=== PATIENT | male | born 1960 | race Caucasian/White ===

== ENCOUNTER 2016-04-23 07:28 | Emergency (ER) | payer OTHER ==
--- NOTE | 2016-04-23 07:34 | EDM.PDOC ---
ED HPI ENT - General Chief Complaint: ENT Problem Stated Complaint: NOSE BLEED Time Seen by Provider: 04/23/16 07:29 Source of Information: Reports: Patient History Limitations: Reports: No limitations - History of Present Illness INITIAL COMMENTS - FREE TEXT/NARRATIVE: History of present illness: [] Patient started having a nosebleed one hour ago and has not stopped. Patient takes one baby aspirin a day and took one last night. Review of systems: As per history of present illness and below otherwise all systems reviewed and negative. Past medical history: As per history of present illness and as reviewed below otherwise noncontributory. Surgical history: As per history of present illness and as reviewed below otherwise noncontributory. Social history: No reported history of drug or alcohol abuse. Family history: As per history of present illness and as reviewed below otherwise noncontributory. Physical exam: General: Well developed, well nourished in NAD HEENT: Atraumatic, normocephalic, pupils reactive, negative for conjunctival pallor or scleral icterus, mucous membranes moist, throat clear, neck supple, nontender, trachea midline. Right Anterior septum with an area of moderate active bleeding. Lungs: Clear to auscultation, breath sounds equal bilaterally, chest nontender. Heart: S1S2, regular, negative for clicks, rubs, or JVD. Abdomen: Soft, nondistended, nontender. Negative for masses or hepatosplenomegaly. Negative for costovertebral tenderness. Pelvis: Stable nontender. Genitourinary: Deferred. Rectal: Deferred. Extremities: Atraumatic, negative for cords or calf pain. Neurovascular unremarkable. Neuro: Awake, alert, oriented. Cranial nerves II through XII unremarkable. Cerebellum unremarkable. Motor and sensory unremarkable throughout. Exam nonfocal. Diagnostics: [] Therapeutics: [] Nasal septum was anesthetized with lidocaine with epi after 2 sprays of Afrin. Patient blew clots out in anterior bleed was visualized and cauterized with silver nitrate. Impression: [] Epistaxis Plan: [] Stop aspirin for one week. Followup PMD return if symptoms worsen or change Definitive disposition and diagnosis as appropriate pending reevaluation and review of above. Quality: Reports: Burning - Related Data Allergies/ADRs: Allergies Allergy/AdvReac Type Severity Reaction Status Date / Time No Known Allergies Allergy Verified 02/20/14 09:06 Home Meds: Home Meds Aspirin 1 tab PO DAILY 04/23/16 [History] FLUoxetine HCl [Fluoxetine] 1 tab PO DAILY 04/23/16 [History] Lisinopril [Zestril] 1 tab PO DAILY 04/23/16 [History] Methylphenidate HCl [Methylphenidate ER] 1 tab PO DAILY 04/23/16 [History] Omeprazole Magnesium [Prilosec Otc] 1 tab PO DAILY 04/23/16 [History] atorvaSTATin [Lipitor] 1 tab PO DAILY 04/23/16 [History] ED ROS ENT - Review of Systems Review Of Systems: See Below (See history of present illness) ED EXAM, ENT - Physical Exam Exam: See Below (See history of present illness) Course - Vital Signs Last Recorded V/S: Last Vital Signs Temp 36.2 C 04/23/16 07:34 Pulse 91 04/23/16 07:34 Resp 20 04/23/16 07:34 BP 140/94 H 04/23/16 07:34 Pulse Ox 96 04/23/16 07:34 - Orders/Labs/Meds Meds: Medications Discontinued Medications Generic Name Dose Route Start Last Admin Trade Name Sunshine PRN Reason Stop Dose Admin Lidocaine/Epinephrine 20 ml 04/23/16 07:49 04/23/16 07:56 Xylocaine 1% With Epinephrine 1:100,000 INJECT 04/23/16 07:50 20 ml ONETIME ONE Administration Oxymetazoline HCl 5 ml 04/23/16 07:38 04/23/16 07:48 Afrin Original 0.05% Nasal [place] MONI 04/23/16 07:39 1 squirt ONETIME ONE Administration Departure - Departure Time of Disposition: 08:16 Disposition: Home, Self-Care 01 Condition: good Clinical Impression: Epistaxis Forms: ED Department Discharge Additional Instructions: The following information is given to patients seen in the emergency department who are being discharged to home. This information is to outline your options for follow-up care. We provide all patients seen in our emergency department with a follow-up referral. The need for follow-up, as well as the timing and circumstances, are variable depending upon the specifics of your emergency department visit. If you don't have a primary care physician on staff, we will provide you with a referral. We always advise you to contact your personal physician following an emergency department visit to inform them of the circumstance of the visit and for follow-up with them and/or the need for any referrals to a consulting specialist. The emergency department will also refer you to a specialist when appropriate. This referral assures that you have the opportunity for follow-up care with a specialist. All of these measure are taken in an effort to provide you with optimal care, which includes your follow-up. Under all circumstances we always encourage you to contact your private physician who remains a resource for coordinating your care. When calling for follow-up care, please make the office aware that this follow-up is from your recent emergency room visit. If for any reason you are refused follow-up, please contact the [facility] Emergency Department at and asked to speak to the emergency department charge nurse. [facility] - ENT [address] [place] [phone]
[2016-04-23] MEDS ORDERED: Oxymetazoline 0.05% Nasal Spray 15 ML Bottle NAS ONE (07:38)
[2016-04-23] MEDS ORDERED: Lidocaine 1% with EPINEPHrine 1:100,000 20 ML MDV INJECT ONE (07:49)
[2016-04-23 08:27] VITALS: BP 127/75
== END 2016-04-23 08:25 | disposition home or self-care (01) ==
LOC: MW.ED 07:28
DX: R04.0 Epistaxis (principal); Z79.82 Long term (current) use of aspirin; Z79.899 Other long term (current) drug therapy
CPT/HCPCS: 30901; 99283; A9270; 99282

== ENCOUNTER 2018-12-23 20:35 | Emergency (ER) | payer OTHER ==
[2018-12-23] MEDS ORDERED: Lidocaine 1% with EPINEPHrine 1:100,000 10 ML MDV INJECT ONE (20:47)
[2018-12-23] MEDS ORDERED: Oxymetazoline 0.05% Nasal Spray 15 ML Bottle NAS ONE (20:47)
--- NOTE | 2018-12-23 20:48 | EDM.PDOC ---
ED HPI GENERAL MEDICAL PROBLEM - General Chief Complaint: ENT Problem Stated Complaint: NOSE BLEED Time Seen by Provider: 12/23/18 20:47 Source of Information: Reports: Patient History Limitations: Reports: No Limitations - History of Present Illness INITIAL COMMENTS - FREE TEXT/NARRATIVE: HISTORY AND PHYSICAL: History of present illness: Patient is a 58-year-old male presents to the ED with complaint of nosebleed. He states he blew his nose about an hour prior to arrival and is now start to bleed and has not stopped. He denies injury or trauma. He does take a daily baby aspirin. He denies chest pain, shortness of breath, dizziness, syncope or near syncope. Review of systems: As per history of present illness and below otherwise all systems reviewed and negative. Past medical history: As per history of present illness and as reviewed below otherwise noncontributory. Surgical history: As per history of present illness and as reviewed below otherwise noncontributory. Social history: No reported history of drug or alcohol abuse. Family history: As per history of present illness and as reviewed below otherwise noncontributory. Physical exam: General: Patient sitting comfortably in no acute distress and nontoxic appearing HEENT: Bleeding from right nares but unable to visual sight of bleeding. Atraumatic, normocephalic, pupils reactive, negative for conjunctival pallor or scleral icterus, mucous membranes moist, throat clear, neck supple, nontender, trachea midline. No meningeal signs. Lungs: Clear to auscultation, breath sounds equal bilaterally, chest nontender. Heart: S1S2, regular, negative for clicks, rubs, or overt murmur. Abdomen: Soft, nondistended, nontender. Negative for masses or hepatosplenomegaly. Negative for costovertebral tenderness. No rigidity, rebound , guarding. Pelvis: Stable nontender. Genitourinary: Deferred. Rectal: Deferred. Extremities: Atraumatic, negative for cords or calf pain. Neurovascular unremarkable. Neuro: Awake, alert, oriented. Cranial nerves II through XII unremarkable. Cerebellum unremarkable. Motor and sensory unremarkable throughout. Exam nonfocal. Notes: Patient was instructed to blow nose to remove clots, 2 sprays of Afrin in to the nares, nasal plug placed in to the right nostril and infiltrated with lidocaine 1% with epinephrine and left for 15 minutes. Bleeding continued after 15 minutes so rhino rocket used. a 7.5cm Rhino rocket was soaked in sterile water and placed in to the right nostril and inflated with 10cc air. Patient tolerate this well. He denies drainage down his throat but does have some dripping out of his nose. Diagnostics: [] Therapeutics: [] Prescriptions: Impression: Epistaxis Plan: Follow up with ENT tomorrow, please call Dr. Pearson in [place] for follow up. If you can not be seen tomorrow, please call so we can arrange a follow up in [place] as the packing must be removed by Thursday. Take antibiotic as instructed. Sleep with your head elevated and at least 3 pillows. Return to ED as needed as discussed Definitive disposition and diagnosis as appropriate pending reevaluation and review of above. - Related Data Allergies Allergy/AdvReac Type Severity Reaction Status Date / Time No Known Allergies Allergy Verified 12/23/18 20:42 Home Meds: Home Meds Aspirin 1 tab PO DAILY 04/23/16 [History] FLUoxetine HCl [Fluoxetine] 1 tab PO DAILY 04/23/16 [History] Lisinopril [Zestril] 1 tab PO DAILY 04/23/16 [History] Methylphenidate HCl [Methylphenidate ER] 1 tab PO DAILY 04/23/16 [History] Omeprazole Magnesium [Prilosec Otc] 1 tab PO DAILY 04/23/16 [History] atorvaSTATin [Lipitor] 1 tab PO DAILY 04/23/16 [History] Past Medical History Cardiovascular History: Reports: High Cholesterol, Hypertension Other Gastrointestinal History: Heartburn Psychiatric History: Reports: ADHD, Anxiety - Infectious Disease History Infectious Disease History: Reports: Measles, Mumps - Past Surgical History HEENT Surgical History: Reports: Naso-Sinus Surgery, Other (See Below) Social & Family History - Family History Family Medical History: Noncontributory - Caffeine Use Caffeine Use: Reports: Coffee ED ROS ENT - Review of Systems Review Of Systems: ROS reveals no pertinent complaints other than HPI. ED EXAM, ENT - Physical Exam Exam: See Below (see dictation) Course - Vital Signs Last Recorded V/S: Last Vital Signs Temp 96.3 F 12/23/18 20:43 Pulse 90 12/23/18 20:43 Resp 16 12/23/18 20:43 BP 158/93 H 12/23/18 20:43 Pulse Ox 96 12/23/18 20:43 - Orders/Labs/Meds Meds: Medications Discontinued Medications Generic Name Dose Route Start Last Admin Trade Name Sunshine PRFredy Reason Stop Dose Admin Lidocaine/Epinephrine 10 ml 12/23/18 20:47 12/23/18 20:54 Xylocaine 1% With Epinephrine 1:100,000 INJECT 12/23/18 20:48 Not Given ONETIME ONE Lidocaine/Epinephrine 20 ml 12/23/18 20:54 Xylocaine 1% With Epinephrine 1:100,000 INJECT 12/23/18 20:55 ONETIME ONE Oxymetazoline HCl 1 ml 12/23/18 20:47 Afrin Original 0.05% Nasal [place] MONI 12/23/18 20:48 ONETIME ONE Departure - Departure Time of Disposition: 22:14 Disposition: Home, Self-Care 01 Condition: Good Clinical Impression: Epistaxis - Discharge Information Referrals: Petar Brown MD [Primary Care Provider] - Forms: ED Department Discharge Additional Instructions: The following information is given to patients seen in the emergency department who are being discharged to home. This information is to outline your options for follow-up care. We provide all patients seen in our emergency department with a follow-up referral. The need for follow-up, as well as the timing and circumstances, are variable depending upon the specifics of your emergency department visit. If you don't have a primary care physician on staff, we will provide you with a referral. We always advise you to contact your personal physician following an emergency department visit to inform them of the circumstance of the visit and for follow-up with them and/or the need for any referrals to a consulting specialist. The emergency department will also refer you to a specialist when appropriate. This referral assures that you have the opportunity for follow-up care with a specialist. All of these measure are taken in an effort to provide you with optimal care, which includes your follow-up. Under all circumstances we always encourage you to contact your private physician who remains a resource for coordinating your care. When calling for follow-up care, please make the office aware that this follow-up is from your recent emergency room visit. If for any reason you are refused follow-up, please contact the [facility] Emergency Department at and asked to speak to the emergency department charge nurse. [facility] [address] [place] [address] [facility] [address] [place] [address] Follow up with ENT tomorrow, please call Dr. Pearson in [place] for follow up. If you can not be seen tomorrow, please call so we can arrange a follow up in [place] as the packing must be removed by Thursday. Take antibiotic as instructed. Sleep with your head elevated and at least 3 pillows. Return to ED as needed as discussed
[2018-12-23] MEDS ORDERED: Lidocaine 1% with EPINEPHrine 1:100,000 20 ML MDV INJECT ONE (20:54)
[2018-12-23 22:31] VITALS: PULSE 93
[2018-12-23 22:35] VITALS: BP 149/102
== END 2018-12-23 22:47 | disposition home or self-care (01) ==
LOC: MW.ED 20:35
DX: R04.0 Epistaxis (principal); E78.00 Pure hypercholesterolemia, unspecified; I10 Essential (primary) hypertension; F41.9 Anxiety disorder, unspecified; F90.9 Attention-deficit hyperactivity disorder, unspecified type; Z79.82 Long term (current) use of aspirin; Z79.899 Other long term (current) drug therapy
CPT/HCPCS: 99283